=== PATIENT | female | born 1955 ===

== ENCOUNTER 2020-06-02 10:14 | Emergency (ER) | payer SELFPAY ==
[~2020-06-02] VITALS: Ht 160 cm; Wt 59.0 kg
[2020-06-02 10:33] VITALS: BP 174/81
--- NOTE | 2020-06-02 11:30 | NUR ---
Went to call pt to room and was informed by registration that pt decided to go see PCP.
== END 2020-06-02 11:38 | disposition left against medical advice (07) ==
LOC: ER 10:17
DX: I10 Essential (primary) hypertension (principal)